=== PATIENT | male | born 1985 | race Caucasian/White ===

== ENCOUNTER 2016-11-17 06:43 | Emergency (ER) | payer MEDICAID ==
[2016-11-17 06:53] VITALS: BP 129/63
[2016-11-17] MEDS ORDERED: ONDANSETRON HCL/PF 2 MG/ML VIAL IV ONE (06:57)
[2016-11-17] MEDS ORDERED: NORMAL SALINE 1,000 ML IV ONE (06:57)
--- NOTE | 2016-11-17 06:58 | ERNOTE ---
Medical Problem HPI - Narrative Date of Service: 11/17/16 - General Chief Complaint: General Assessment Time Seen by Provider: 11/17/16 06:55 Source: patient Exam Limitations: no limitations - Immun/Allergies/Home Medications Immunizations: IMMUNIZATION HX Immunizations Up to Date Yes History of Influenza Vaccine No Hx Pneumococcal Vaccination No Allergies/Adverse Reactions: Allergies No Known Allergies Allergy (Verified 11/17/16 06:52) Home Medications: HOME MEDICATIONS Omeprazole 40 mg PO DAILY 11/17/16 [Last Taken Unknown] - History of Present History Narrative: C/O VOMITING LAST WEEK HAS THE "REST OF HIS FAMILY". NOW HE SAYS HE HAS GENERALIZED ABD PAIN. HE SAYS HE DID NOT VOMIT FOR 4 DAYS NOW BUT ALSO DID NOT HAVE A BM SO HE TOOK MOM WHICH CAUSED HIM TO HAVE BM'S . HE DENIES FEVER OR CHILLS. HE THINKS HE HAS HAD DECREASED URINE OUTPUT BUT SAYS HE DRANK TWO GLASSES OF WATER BEFORE COMING TODAY. HE DENIES MEDS EXCEPT FOR OMEPRAZOLE THAT HE SAYS HE HAS BEEN TAKING FOR YEARS. Review of Systems - Review of Systems Constitutional: Present: See HPI EYE: Present: no symptoms reported ENT: Present: no symptoms reported Respiratory: Present: no symptoms reported Cardiology: Present: no symptoms reported Gastrointestinal/Abdominal: Present: See HPI Genitourinary: Present: no symptoms reported Musculoskeletal: Present: no symptoms reported Skin: Present: no symptoms reported Neurological: Present: no symptoms reported Endocrine: Present: no symptoms reported Hematologic/Lymphatic: Present: no symptoms reported Psych: Present: no symptoms reported All Other Systems: All systems neg except as marked - Patient's Past Medical History Patient History - Medical: GERD Patient History - Cardiac/Respiratory: No pertinent hx Patient History - Cancer: No Hx of Cancer Patient History - Surgical Procedures: EGD, Other Patient History - Other: None - Social History Living Situations: home Abuse History: No History of abuse Psych History: No pertinent hx Smoking Status: Never smoker Alcohol Use: rarely Drug Use: none - Immunizations Immunizations Up to Date: Yes Hx Pneumococcal Vaccination: No History of Influenza Vaccine: No Physical Exam - Physical Exam General Appearance: Present: wd/wn, alert, no apparent distress Ears, Nose, Throat: Absent: dry mucous membranes Respiratory: Present: no respiratory distress, normal breath sounds, no accessory muscle use, chest nontender, lungs clear Cardiovascular/Chest: Present: regular rate, rhythm, no murmur, normal peripheral pulses Gastrointestinal/Abdominal: Present: normal bowel sounds, nontender, nondistended, soft, no organomegaly Back Exam: Present: no CVA tenderness Neurological Exam: Present: alert, oriented Skin Exam: Present: normal color. Absent: jaundice ED Progress - Results and Orders Patient's Lab Results:: I have reviewed the patient's lab results. Results and Orders: CBC, CMP AND CRP ARE TOTALLY NORMAL. - Vital Signs Patient's Vital Signs:: I have reviewed the patient's vital signs. Vital Signs: Vital Signs 11/17/16 06:46 Temperature 35.9 C L Pulse Rate 80 Respiratory 16 Rate Blood Pressure 129/63 O2 Sat by Pulse 98 Oximetry - X-Ray X-Ray #1 X-Ray: abdomen Interpretation: Interp. by me - NO ABNORMALITY NOTED. X-ray Comments: [facility] PATIENT RADIOLOGY STUDY REPORT Patient Patient Name:MCKAYLA MIGUEL Date: 1985 Sex: M Order Number: [id number] Unique Exam ID: [id number] Exam Requested: [id number] - Abdomen Flat W/ Upright * Date Scheduled: 11-17-2016 07:02 AM Study Priority: Requesting Service: Requesting Physician: John Gorman Reason for Exam: MILD ABDOMINAL PAIN Radiological Report : [facility] [address] [place] [address] NAME: MCKAYLA MIGUEL : 1985 MR #: [id number] CC: John Gorman MD LOC: ER ADM DATE: X-RAY REPORT [id number] RAD/Abdomen Flat W/ Upright * Exam Date: 11/17/2016 07:02 Ordering Physician: John Gorman Indication: MILD ABDOMINAL PAIN Comparison: None Technique: Abdomen Flat W/ Upright * Findings: No free air. Nonobstructed nonspecific bowel gas pattern. No abnormal calcifications. Osseous structures demonstrate no suspicious abnormality. IMPRESSION: 1. No identifiable acute intra-abdominal or pelvic process. Electronically signed by Juan Carlos Prince M.D.. Juan Carlos Prince MD Dict: 11/17/16720 Typed: 11/17/16720/ 11/17/16721 - Progress/Reassessment Chief Complaint: General Assessment Departure - Departure Clinical Impression: Abdominal pain Qualifiers: Abdominal location: generalized Qualified Code(s): R10.84 - Generalized abdominal pain Disposition: Home self-care Condition: Good Instructions: Viral Gastroenteritis, Adult, [id number] Additional Instructions: MAINTAIN GOOD FLUID INTACT AND LIGHT DIET UNTIL YOU HAVE IMPROVED. YOUR LABS AND XRAYS ARE NORMAL. SEE YOUR FAMILY DOCTOR IF NOT IMPROVING BACK TO NORMAL IN 2-3 DAYS Referrals: David Resendiz MD [Primary Care Provider] -
[2016-11-17 07:09] LABS: Hematocrit 42.6 % (42.0-52.0); Hemoglobin 15.5 gm/dL (13.5-18.0); Mean Cell Volume 85.7 fl (78-100); Mean Corpuscular Hemoglobin 31.2 pg (27-31); Mean Corpuscular Hgb Conc 36.4 g/dl (32-36); Mean Platelet Volume 11.1 fl (6.0-9.5); Neutrophil # 5.3 K/mm3 (1.3-6.0); Neutrophil % 67.8 % (42-75.0); Platelet Count 218 K/mm3 (150-450); Red Blood Count 4.97 M/mm3 (4.7-6.0); Red Cell Distribution Width 11.5 % (11.5-14.0); White Blood Count 7.8 K/mm3 (4.0-10.5)
--- OUTSIDE RECORDS SUMMARY | 2016-11-17 07:11 | XMS REPORT | Continuity of Care Document ---
:1985 Author Organization [facility] ([facility]) Address [address] [place] [address] Phone [phone] Care Team Providers Name Role Phone Unavailable Primary Care Provider Unavailable Source Comments This disclosure is being made pursuant to the Care Everywhere program, applicable federal and state laws, and may not contain all informaitonavailable regarding this patient.[facility] ([facility]) Active Allergies and Adverse Reactions Not on File Current Medications Not on file Active Problems Not on file Social History Tobacco Use Types Packs/Day Years Used Date Never Assessed Plan of Care Health Maintenance Due Date Last Done Comments Hepatitis B Vaccine (1 of 3 - Primary Series) 1985 Tdap Vaccine 01/29/1996 Lipid Disorder Screening 2003 MMR Vaccine 2003 Td Vaccine 2003 Varicella Vaccine (1 of 2 - Adult - No Evidence of 2003 Immunity) Influenza Vaccine: Seasonal (#1) 12/31/2015 Results from Last 3 Months Not on file
[2016-11-17 07:23] LABS: ALT 46 U/L (19-67); AST 23 U/L (0-48); Albumin * 4.3 gm/dl (3.4-5.0); Alkaline Phosphatase * 97 U/L (50-170); Anion Gap 12.4 mmol/L (6.8-13.8); BUN/Creatinine Ratio 8.6 (9.0-21.6); Bilirubin, Total 0.6 mg/dL (0.0-1.1); Blood Urea Nitrogen 12 mg/dL (6-23); Ca. Corrected For Albumin 8.4 mg/dL (8.4-10.2); Chloride 104 mmol/L (97-106); Glucose * 114 mg/dL (70-110); Lipase 144 U/L (73-393); Potassium 3.4 mmol/L (3.4-4.6); Sodium 142 mmol/L (132-142); Total Protein 7.5 gm/dL (6.2-8.2)
== END 2016-11-17 08:35 | disposition home or self-care (01) ==
LOC: ER 06:43
DX: R10.84 Generalized abdominal pain (principal); K21.9 Gastro-esophageal reflux disease without esophagitis